=== PATIENT | female | born 1985 | race Caucasian/White ===

== ENCOUNTER 2016-10-23 11:19 | Emergency (ER) | payer OTHER ==
[~2016-10-23] VITALS: Ht 147.3 cm; Wt 59.0 kg
[~2016-10-23 11:19] MED LIST: ABILIFY10 MG PO; MELOXICAM7.5 M1 PO; OLANZAPINE5 MG PO; PAXIL10 MG PO; PAXIL20 M1 PO; PAXIL20 MG PO; PERCOCET 5-3251 EACH PO; XANAX0.5 MG PO; ZOFRAN4 M1 SL; ZYPREXA2.5 MG PO; ZYPREXA5 MG PO
--- NOTE | 2016-10-23 11:30 | ED PSYCHIATRIC COMPLAINT ---
History of Present Illness General Chief Complaint: Psychiatric Related Complaint Stated Complaint: ANXIETY, SI Vital Signs & Intake/Output Vital Signs & Intake/Output Vital Signs Date Time Temp Pulse Resp B/P Pulse O2 O2 Flow FiO2 Ox Delivery Rate 10/23 1126 98.2 81 20 142/88 96 Room Air Allergies Coded Allergies: Penicillins (Intermediate, RASH 01/04/16) Reconcile Medications Aripiprazole (Abilify) 10 MG TAB 1 TAB PO DAILY DEPRESSION Meloxicam 7.5 MG TABLET 1 TAB PO DAILY PRN pain/inflammation Oxycodone HCl/Acetaminophen (Percocet 5-325 MG Tablet) 1 EACH TABLET 1 TAB PO Q6H PRN PAIN PAROXETINE HCL (Paxil) 20 MG TAB 1 TAB PO DAILY DEPRESSION Paroxetine HCl (Paxil) 20 MG TABLET 1 TAB PO DAILY DEPRESSION Triage Note: RECEIVED 31 YO FEMALE C/O DESTRUCTIVE THOUGHTS AND ACTIONS. PT DENIES SI BUT IS CURRENTLY HURTING HERSELG, BANGLING HEAD AGAINST WALL AND PUNCHING SELF. PT HAS A HX OF ANXIETY AND PTSD. 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
--- NOTE | 2016-10-23 11:31 | ED PSYCHIATRIC COMPLAINT ---
History of Present Illness General Chief Complaint: Psychiatric Related Complaint Stated Complaint: ANXIETY, SI Source: patient, old records, EMS Exam Limitations: no limitations Vital Signs & Intake/Output Vital Signs & Intake/Output Vital Signs Date Time Temp Pulse Resp B/P Pulse O2 O2 Flow FiO2 Ox Delivery Rate 10/24 1028 99.4 92 18 98/60 10/24 0648 97.9 97 18 105/63 97 Room Air 10/23 2216 97.9 79 18 103/56 97 Room Air 10/23 1943 98.9 88 18 90/55 95 Room Air 10/23 1615 99.2 97 18 110/58 95 Room Air 10/23 1346 98.9 86 16 126/84 98 Room Air ED Intake and Output 10/24 0000 10/23 1200 Intake Total Output Total 300 Balance -300 Output, Urine 300 Patient 130 lb Weight Allergies Coded Allergies: Penicillins (Intermediate, RASH 01/04/16) Reconcile Medications Aripiprazole (Abilify) 10 MG TAB 1 TAB PO DAILY DEPRESSION Oxcarbazepine (Trileptal) (Unknown Strength) TABLET (Unknown Dose) DAILY TBI/ MENTAL HEALTH (Reported) PAROXETINE HCL (Paxil) 20 MG TAB 1 TAB PO DAILY DEPRESSION Trazodone HCl (Unknown Strength) TABLET (Unknown Dose) QPM SLEEP (Reported) Triage Note: RECEIVED 31 YO FEMALE C/O DESTRUCTIVE THOUGHTS AND ACTIONS. PT DENIES SI BUT IS CURRENTLY HURTING HERSELG, BANGLING HEAD AGAINST WALL AND PUNCHING SELF. PT HAS A HX OF ANXIETY AND PTSD. Triage Nurses Notes Reviewed? yes Onset: Gradual Duration: worse persistent since (1-2 weeks) Timing: recent history Severity: moderate Severity Numbers: 8 : No Patient currently breastfeeds: No HPI: Patient is a 31-year-old female presenting to the emergency department with chief complaint of suicidal ideation, increased anxiety. She reports that she's had intermittent thoughts of hurting herself over the past couple weeks. She recently relapsed with her alcohol use. She also chews on her . Over the past couple days she's been punching herself and hitting her head on the card because she feels like it's better off not being here. She also reports that she has history of cocaine abuse but reports no use recently. She drinks about 6 beers daily when she relapses. Denies any current nausea or vomiting fevers or chills chest pain or shortness of breath. The last time she hit herself in the face was 4 days ago. Denies any homicidal ideation. Denies abdominal pain. Denies any LOC with head injuries. (TOMAS DIXON) Past History Travel History Traveled to [place] past 21 day No Medical History Any Pertinent Medical History? 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 No (TOMAS DIXON) Review of Systems Review of Systems Constitutional: Reports: no symptoms. Comments Review of systems: See HPI, All other systems negative. Constitutional, no chills fever or weight loss HEENT: No visual changes no sore throat no congestion Cardiovascular: No chest pain ,palpitation Skin, no jaundice no rashes Respiratory: No dyspnea cough sputum or hemoptysis GI: No nausea no vomiting : No dysuria No hematuria Muscle skeletal: no back pain, no neck pain, Neurologic: No numbness Psych: Positive stress anxiety or depression,. Heme/endocrine: No bruising no bleeding no polyuria or polydipsia Immunology: No splenectomy or history of AIDS (TOMAS DIXON) Physical Exam Physical Exam General Appearance: well developed/nourished, no apparent distress, alert, awake , tearful Neurological/Psychiatric: oriented x 3 Comments: Well-developed well-nourished person in no acute distress HEENT: extraocular motion intact, no nystagmus. Pupils equally round and reactive to light and accommodation. Nose is atraumatic. External auditory canal and Tympanic membranes clear. Pharynx normal. No swelling or edema. Ecchymosis noted on the lateral aspect of the right orbit, nontender to palpation. Ecchymosis also noted at the superior aspect of the forehead which is nontender. Bruising appears to be several days old. Neck: Normal inspection Cardiovascular: Regular rate and rhythms no murmurs rubs or gallops, normal JVP Respiratory: Chest nontender. No respiratory distress.breath sounds clear to auscultation bilaterally Extremity: No edema Neuro: Alert oriented x3, motor sensory normal, cranial nerves II through XII grossly intact. Skin: Other than bruising, No appreciable rash on exposed skin, skin is warm and dry. Psych: Mood and affect is normal, memory and judgment is normal. SAD PERSONS SAD PERSONS Response Value Depression/Hopelessness? yes 2 Excessive Ethanol/Drug Use? yes 1 Rational Thinking Loss? yes 2 Social Support? has support 0 Stated Future Intent? yes 2 Total 7 SAD PERSONS Done? yes (TOMAS DIXON) Progress Differential Diagnosis: major depressive disorder, generalized anxiety disorder, contusion, concussion Plan of Care: Orders Procedure Date/time Status Regular Diet 10/24 B Active Regular Diet 10/23 L Complete Add-on Test (ER Only) 10/23 1251 Active ETHANOL 10/23 1139 Complete Hand-Off Endorsed To: SUKHDEV WESTBROOK MD Endorsed Time: 2300 Pending: consult Comments: Patient is a holdover for a bed search. Signed out to Dr. blanchard (TOMAS DIXON) Hand-Off Endorsed To: NISHANT WANG MD Endorsed Time: 0700 Pending: consult (CRISIS- BED SEARCH) (SUKHDEV WESTBROOK MD) Comments: Cleared by psychiatry for discharge (NISHANT WANG MD) Departure Departure Condition: Stable Referrals: PATIENT HAS NO PRIMARY CARE DR (PCP/Family) Departure Forms: Customer Survey General Discharge Information (TOMAS DIXON) Departure Clinical Impression Primary Impression: Anxiety Secondary Impressions: Alcohol dependence, Suicidal ideation PA/NUT CHOPPER Co-Sign Statement Statement: ED Attending supervision documentation- [X] I saw and evaluated the patient. I have also reviewed all the pertinent lab results and diagnostic results. I agree with the findings and the plan of care as documented in the PA's/NUT CHOPPER's documentation. [X] I have reviewed the ED Record and agree with the PA's/NUT CHOPPER's documentation. [] Additions or exceptions (if any) to the PAs/NUT CHOPPER's note and plan are summarized below: [] (SUKHDEV WESTBROOK MD) Departure Time of Disposition: 1245 Disposition: HOME OR SELF CARE Additional Instructions: Follow up with the recommendations of the casting house worker (NISHANT WANG MD) PATIENT HAS NO PRIMARY CARE DR (PCP/Family) Departure Forms: Customer Survey General Discharge Information (TOMAS DIXON) Departure Disposition: STILL A PATIENT Clinical Impression Primary Impression: Anxiety Secondary Impressions: Alcohol dependence, Suicidal ideation PA/NUT CHOPPER Co-Sign Statement Statement: ED Attending supervision documentation- [X] I saw and evaluated the patient. I have also reviewed all the pertinent lab results and diagnostic results. I agree with the findings and the plan of care as documented in the PA's/NUT CHOPPER's documentation. [X] I have reviewed the ED Record and agree with the PA's/NUT CHOPPER's documentation. [] Additions or exceptions (if any) to the PAs/NUT CHOPPER's note and plan are summarized below: [] (PIETRO IVY,SUKHDEV)
[2016-10-23] MEDS ORDERED: TRILEPTAL150 M1 (11:46)
[2016-10-23] MEDS ORDERED: TRAZODONE HCL100 M1 (11:47)
[2016-10-23 12:02] LABS: ABSOLUTE BASOPHIL COUNT 0.1 /CUMM (0.0-0.2); ABSOLUTE EOSINOPHIL COUNT 0.4 /CUMM (0.0-0.7); ABSOLUTE GRANULOCYTE CT 4.4 /CUMM (1.4-6.5); ABSOLUTE LYMPH COUNT 2.2 /CUMM (1.2-3.4); ABSOLUTE MONOCYTE COUNT 0.5 /CUMM (0.10-0.60); BASOPHIL % 0.9 % (0.0-2.0); EOSINOPHIL % 5.6 % (0-5); GRANULOCYTE % 57.5 % (42.2-75.2); HEMATOCRIT 45.5 % (37-47); MEAN CORPUSCULAR HGB 32.3 PG (27.0-31.0); MEAN CORPUSCULAR HGB CONC 34.1 G/DL (33.0-37.0); MEAN CORPUSCULAR VOLUME 94.7 FL (81.0-99.0); MEAN PLATELET VOLUME 8.6 FL (7.4-10.4); PLATELET COUNT 285 /CUMM (130-400); RED BLOOD CELL CT 4.81 /CUMM (4.20-5.40); WHITE BLOOD CELL COUNT 7.7 /CUMM (4.8-10.8)
--- NOTE | 2016-10-23 14:56 | ED PSYCH CRISIS CONSULTATION ---
See Addendum Crisis Consult Basic Assessment Date of Consult: 10/23/16 Responsible Person/Accompanied By: self Insurance Authorization: Insurance #1: Insurance name: MEDICARE A Phone number: Policy number: [id number] Group number: Authorization number: ED Provider: Patient's ED Provider: TOMAS DIXON Primary Care Physician: Patient's PCP: PATIENT HAS NO PRIMARY CARE DR PCP's Phone Number: Current Psychiatrist: Dr. Keenan [facility] Chief Complaint: Psychiatric Related Complaint Patient's Quote: "My voices from my thought bank told me to give up." Present Illness: Pt is a 31yo female who was brought to the ED by her ex- Jacob Cross due to concerns of suicidal thought and self harming behaviors. Pt has a hx of Bipolar Disorder with psychotic features since age 11 with multiple inpt psych admits as well as various out pt tx providers. Pt is currently in out pt tx at [facility], but stopped going in August and has decompensated since. Pt has been hearing her own voice from her "inner voice bank" telling her to give up and drink and do drugs and overdose. Pt has a prior hx of cutting and suicide attempts by OD and trying to jump off a bridge. Pt identifies that she has been sober for the past 3-4 years. Pt is upset with herself because she relapsed on alcohol about 2 weeks ago. She went to a bar and drank and then went home with a stranger and stayed with him for 2-3 days and had sex with him. Pt says she has not drank since then. Pt admits that she smokes marijuana surjit 2-3 days. She denies that she smokes around her 2yo child. Pt currently living with her Mom and the child is with the father Jacob. Pt sometimes stays with him as well. Pt explains that she is very angry at herself for relapsing and also for cheating on Jacob with the stranger, because they are trying to work things out and get back together. Pt admits that she has been having intermittent suicidal thoughts about overdosing, so Jacob has had to hold her meds and give them to her. Pt admits that she is not always consistent with her meds and sometimes forgets to take them (paxil, abilify, and trileptal). Pt also informed that she has been so overwhelmed with guilt that she has been punching herself in the face and banging her head on the wall. Pt currently has self inflicted bruises around her right eye. Pt presents as hyperverbal with pressured loud speech and disorganization. Pt is crying so much that at times it becomes difficult to understand what she says. Pt expresses feeling very depressed and has been isolating. Pt says she has been feeling very stressed due to having a conflicted relationship with her Mom and Jacob who are her primary supports but they both have threatened to kick her out of their homes due to her concerning behaviors. Crisis spoke to both ex- Jacob Cross and mother Jade Jones who both express great concern for pt and her safety due to her SI, SH, and impulsive behaviors and poor judgement. Additionally, Jacob reports that pt has been more distant from her 2yo sone which is very unlike her. Case reviewed with Dr. Ram of psychiatry and pt requires inpt psych tx. There are currently no beds available [facility], so a bed search will be done. Pt requesting to go inpt at [facility], but alleges that she has sex with someone while on their inpt psych unit. Mom requests that pt does not get transferred to [facility] psych for this reason. Patient's Address: [address] [place] [address] Other Phone Number: Who Do You Live With? Mother Family/Informants Interviewed: mom and ex- Allergies - Coded Allergies: Penicillins (Intermediate, RASH 01/04/16) Current Medications - Scheduled Medications Aripiprazole (Abilify) 10 MG TAB 1 TAB PO DAILY DEPRESSION #30 TAB Prescribed by JEFFRY MINAYA MD on 12/21/15 Last Taken: Unknown Dose at an unknown date and time Oxcarbazepine (Trileptal) (Unknown Strength) TABLET (Unknown Dose) DAILY TBI/ MENTAL HEALTH (Reported) Entered as Reported by DALTON DOWNS on 10/23/16 1146 PAROXETINE HCL (Paxil) 20 MG TAB 1 TAB PO DAILY DEPRESSION #30 TAB Prescribed by JEFFRY MINAYA MD on 12/21/15 Last Taken: Unknown Dose at an unknown date and time Trazodone HCl (Unknown Strength) TABLET (Unknown Dose) QPM SLEEP (Reported) Entered as Reported by DALTON DOWNS on 10/23/16 1147 Laboratory Results: Laboratory Tests 10/23/16 1152: Urine Opiates Screen < 100.00, Methadone Screen < 40, Barbiturate Screen < 60, Ur Phencyclidine Scrn < 6.00, Amphetamines Screen < 100, U Benzodiazepines Scrn < 85, Urine Cocaine Screen < 50, Urine Cannabis Screen 79.30 H, Urinalysis LIGHT H, Urine Color YEL, Urine Clarity HAZY H, Urine pH 6.0, Ur Specific [place] >= 1.030, Urine Protein 30 H, Urine Ketones TRACE H, Urine Nitrite POS H, Urine Bilirubin NEG, Urine Urobilinogen 0.2, Ur Leukocyte Esterase NEG, Ur Microscopic SEDIMENT EXAMINED, Urine RBC 1-3, Urine WBC 15-25 H, Ur Epithelial Cells MANY H, Urine Hemoglobin SMALL H, Urine Glucose NEG, Urine Test NEGATIVE 10/23/16 1139: Anion Gap 11, Estimated GFR > 60, BUN/Creatinine Ratio 16.7, Glucose 115 H, Calcium 9.8, Total Bilirubin 0.4, AST 17, ALT 20, Alkaline Phosphatase 83, Total Protein 7.8, Albumin 4.5, Globulin 3.3, Albumin/Globulin Ratio 1.4, TSH &T3 & Free T4 Intrp 1.660, CBC w Diff NO MAN DIFF REQ, RBC 4.81, MCV 94.7, MCH 32.3 H , RDW 13.0, MPV 8.6, Gran % 57.5, Lymphocytes % 29.0, Monocytes % 7.0, Eosinophils % 5.6 H, Basophils % 0.9, Absolute Granulocytes 4.4, Absolute Lymphocytes 2.2, Absolute Monocytes 0.5, Absolute Eosinophils 0.4, Absolute Basophils 0.1, PUBS MCHC 34.1, Serum Alcohol < 10.0 (NAMAN QUINTANA LCSW) Basic Assessment Insurance Authorization: Insurance #1: Insurance name: MEDICARE A Phone number: Policy number: [id number] Group number: Authorization number: (JADE SALVADOR LCSW) Addendum Addendum 10/24/2016 9:45am Pt. re-evaluated by Crisis this morning after having been held over in ED from last night. Pt was alert and oriented x three. Pt appeared to be anxious, but denied any suicidal thoughts. She said that she had punched herself in the eye and the head in the last few days because she was upset with herself for relapsing and cheating on her . Pt. said that her two year old child was not in the room when she hit herself. Pt said that she would like to be discharged so she can follow up with outpatient treatment at [facility] which includes calling her psychiatrist tomorrow and getting refills for her medications called in, going back to her outpatient group and requesting individual therapy. Pt said that she will also go back to AA meetings and get a sponsor. Pt's (Jacob) was called by Crisis. He agreed to pick pt up from ED and take her home and support her in following the above plan of care. Pt was also seen by Dr. Franklin. Pt. was offered inpatient admission, but declined. Pt. is able to safety plan and self-soothe and can call 911 if needed. Pts reported that there are no guns in the home. Pt is discharged to follow up with above plan of care. Pt. was given times and dates to AA meetings near her. 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 Past Surgical History Surgical History: none Psychosocial History Strengths/Capabilities: has good insight into her need for tx, supportive family Physical Limitations (Interventions): none reported Psychiatric Treatment History Psych Treatment Psychiatric Treatment Yes Inpatient Treatment Yes Outpatient Treatment Yes Location of Treatment [facility] Reason for Treatment Bipolar with Psychotic features Dates of Treatment multiple Response to Treatment variable Diagnosis by History: Bipolar with psychotic features Substance Use/Abuse History Drug Use/Abuse Substances Used/Abused Yes Substance Used/Abused Marijuana First Use age 8 Last Used this week How much used/taken "a few puffs" How often 2-3 times a week For how long on and off since age 8 Route of use smoke Substance Abuse Treatment Substance Abuse Treatment Past Substance Abuse TX Yes Inpatient Treatment Yes Outpatient Treatment Yes Location of Treatment [facility] Reason for Treatment poly-substance Dates of Treatment multiple Response to Treatment variable (NAMAN QUINTANA LCSW) Current Mental Status Mental Status Orientation: Person, Place, Situation Affect: Anxious, Broad, Depressed, Hopeless, Labile, Sad, Variable Speech: Hyper-verbal, Loud, Perseveration, Pressured Neuro-vegetative: Anhedonia, Appetite Decreased, Concentration Poor, Energy Decreased, Energy Increased, Helpless, Hyperactivity, Loss of Interest, Sexual Interest Increased, Sleep Disturbance Appearance Appearance- Dress/Hygiene: unkempt, disheveled, good eye contact, crying, shaking Behaviors Thought Process: Disorganized, Flight of Ideas, Irrational, Tangential Thought Content: Auditory Hallucinations Memory: WNL Insight: Poor SI/HI Risk Assessment Past Suicidal Ideation/Attempts Yes Current Suicidal Ideation/Att Yes Past Homicidal Ideation/Att: No Current Homicidal Ideation/Attempts No Degree of Intent: Plan Danger To: Self Gravely Disabled: Lack of Insight, Poor Impulse Control, Poor Judgment Risk Factors: access to lethal means, high anxiety/distress, history of suicide atmpts, SA/MH hospitalized, substance abuse, poor impulse control, limited support Lethality Ratin PTSD Checklist PTSD Done? patient declined ED Management Sitter: Yes Restraints: No (NAMAN QUINTANA LCSW) DSM5/PS Stressors/Medical Prob Diagnosis' (DSM 5, Stressors, Medical): F31.5 Bipolar depressed with psychotic features, cannabis use d/o mod f12.20 Current GAF: 25 (NAMAN QUINTANA LCSW) Departure Disposition Psych Medical Clearance Date: 10/23/16 Medically Cleared at: 1400 Time Started: 1400 Time Ended: 1500 Psychiatrist Consulted: Dr. Ram Date Disposition Established: 10/23/16 Time Disposition Established: 1500 Plan for Disposition - Modality: Inpatient Psychiatry Facility: bed search Rationale for Disposition: safety and stabilization of sx Referrals PATIENT HAS NO PRIMARY CARE DR (PCP/Family) (NAMAN QUINTANA LCSW) Disposition Psych Medical Clearance Date: 10/24/16 Medically Cleared at: 0900 Time Started: 0900 Time Ended: 0945 Psychiatrist Consulted: Noemi Capps Disposition Established: 10/24/16 Time Disposition Established: 944 Plan for Disposition - Modality: Outpatient Facility: [facility] Contact: n/a Telephone: n/a Rationale for Disposition: Pt. denied current suicidal thoughts and is able to safety plan and self-soothe. She is willing to re-engage in OP tx at [facility] and said that she will be going to go back to AA meetings. Pt is not at current risk of harm to self/ others. Pt's was here in the ED and agreed to take her home and support her in the above after-care plan. Dr. Franklin is agreeable to POC also. Additional Instructions: n/a (MODESTO SWANSON,JADE)
[2016-10-24 13:18] VITALS: BP 119/80
--- NOTE | 2016-10-24 19:47 | ED PSYCHIATRIST/APRN CONSULT ---
Psychiatrist/GAMBLING SUPERVISOR ED Consult Assessment and Plan: 31 y.o woman w/ hx psychiatric tx including inpatient admissions, brought in by family for erratic and self injurious behavior. She was observed last night to be loud, anxious/agitated, needed significant de-escalation. Family had stated that she had punched herself after she had relapsed on alcohol and cheated on her , that she had forgotten where she was/who she was with while intoxicated, and she returned home erratic, punching herself in the face. Discussion was made for inpatient admission due to her erratic behavior in the ER and her hx of high risk behavior. This mornign she was calmer, laughing with her family who was present, and better related. She stated that she had no intensions of killing or harming herself - that she had punched self on Tuesday/ tuesday this week and had no other self harm behaviors since, b/c she was feeling guilty about her cheating on and her alcohol relapse. Stated that she did not do this with her child present and that her child was being cared for by her mother overall. Collateral from crisis indicated that her mother was worried about her mental health, that she had no been doing well, but had not seen the patient in several weeks (patient lives w/ her but sometimes goes to mother). /boyfriend was present at bedside, was frustrated with her behavior but did not have immediate safety concerns - patient stated that she was reading a book which was helpful to her, that she needed to get grounded and to manage her anxiety and anger better; and that she did not want to be away from her family in order to do so. She conitnued to dent any thoughts of suicide or wanting to harm someone else, stated that yesterday and earlier in the week she also did not have any suicidal thoughts, that she was trying to punish herself b/c of her relapse by punching self. She was tense and anxious, but able to be distracted easily. She did not present with any significant sx of psychosis; though at times became very anxious and pressured. She did not appear grossly manic, and no delusions were elicite.d We discussed safety planning - no guns at home; knives and bottles are locked up ; to call 911 if she felt unsafe and to have her call 911 if she engages in erratic or self harm behavior. Also discusssed that his adult daughter would continue giving her medications, trileptal, abilify and paxil. she stated that she was prescribed trazodone but it was not helpful. She declined voluntary admission despite education; her mental status appeared to have improved compared to yesterday and her acute crisis apepared to have been resolving. She had multiple friends and family members around her who she stated she was looking forward to seeing later in the day time; and she asked to be given info on AA meeting she could attend later today. She has siginificant chronic risks associated w/ her mental illness, self harm behavior and likely personality traits, in addition to recent relapse. Risks are mitigated w/ ongoing medication, groups, outpatient therapy, AA, and safety planning. she did not meet criteria for PEC and she declined voluntary admission ; also she has outpatient providers where she has been following up. Stable for d/c.
== END 2016-10-24 13:21 ==
LOC: ERH 11:19
PROVIDERS: Physician Assistant
DX: F41.9 Anxiety disorder, unspecified (principal); F10.20 Alcohol dependence, uncomplicated; R45.851 Suicidal ideations
CPT/HCPCS: 80307; 81001; 81025; G0463; G0480

== ENCOUNTER 2016-11-13 19:29 | Emergency (ER) | payer OTHER ==
[~2016-11-13] VITALS: Ht 147.3 cm; Wt 56.7 kg
[~2016-11-13 19:29] MED LIST changes: +TRAZODONE HCL100 M1; +TRILEPTAL150 M1
[2016-11-13 19:42] VITALS: BP 91/63
--- NOTE | 2016-11-13 20:09 | ED UPPER/LOWER EXTREMITY COMPL ---
History of Present Illness General Chief Complaint: Lower Extremity Injury Stated Complaint: FALL/LEFT KNEE PAIN Source: patient Exam Limitations: no limitations Vital Signs & Intake/Output Vital Signs & Intake/Output ED Intake and Output 11/14 0000 11/13 1200 Intake Total 0 Output Total Balance 0 Intake, Oral 0 Patient 125 lb Weight Allergies Coded Allergies: Penicillins (Intermediate, RASH 01/04/16) Reconcile Medications Aripiprazole (Abilify) 10 MG TAB 1 TAB PO DAILY DEPRESSION Oxcarbazepine (Trileptal) (Unknown Strength) TABLET (Unknown Dose) DAILY TBI/ MENTAL HEALTH (Reported) Oxycodone HCl/Acetaminophen (Percocet 5-325 MG Tablet) 5 MG-325 MG TABLET 1-2 TAB PO Q8P PRN PAIN PAROXETINE HCL (Paxil) 20 MG TAB 1 TAB PO DAILY DEPRESSION Trazodone HCl (Unknown Strength) TABLET (Unknown Dose) QPM SLEEP (Reported) Triage Note: PT TO TRIAGE WITH C/O L KNEE PAIN AND L KNEE SKIN ABRASION S/P TRIPPED AND FELL 30MIN [employer]. PT DENIES HEADSTRIKE. SWELLING TO L KNEE NOTED, BLEEDING CONTROLLED. ICE PACK PROVIDED. PT REFUSED PAIN MEDS IN TRIAGE. PT UNSURE OF LAST TETANUS VACC. Triage Nurses Notes Reviewed? yes Onset: Abrupt Duration: hour(s):, constant, continues in ED Timing: recent history Severity: moderate, severe Pain/Injury Location: Left: Knee. Method of Injury: fall No Modifying Factors: none : No Patient currently breastfeeds: No HPI: 31-year-old female comes into emergency room for further evaluation of left knee pain. Patient reports that she fell outside. Patient tripped and came down her left knee. Straight to her left knee. Denies any trauma or injury any rales. Sharp pain. Moderate to severe. He continues. Nonradiating. (KELSEY DAVIS) Past History Travel History Traveled to [place] past 21 day No Medical History Any Pertinent Medical History? 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 No (KELSEY DAVIS) Review of Systems Review of Systems Constitutional: Reports: no symptoms. EENTM: Reports: no symptoms. Respiratory: Reports: no symptoms. Cardiovascular: Reports: no symptoms. Gastrointestinal/Abdominal: Reports: no symptoms. Genitourinary: Reports: no symptoms. Musculoskeletal: Reports: see HPI. Skin: Reports: see HPI. Neurological/Psychological: Reports: no symptoms. Hematologic/Endocrine: Reports: no symptoms. Immunological: Reports: no symptoms. All Other Systems: Reviewed and Negative (KELSEY DAVIS) Physical Exam Physical Exam General Appearance: well developed/nourished, mild distress Head: atraumatic Eyes: Bilateral: normal appearance. Ears, Nose, Throat: normal ENT inspection, hearing grossly normal Neck: normal inspection Cardiovascular/Respiratory: no respiratory distress Back: normal inspection Knee Left: Skin abrasion left knee, full range of motion, MCL/else ill contacts, negative anterior posterior drawer Neurologic/Tendon: normal sensation, normal motor functions, normal tendon functions, responds to pain, no evidence tendon injury, no pulse deficit Skin: intact, normal color, warm/dry Lymphatic: no anterior cervical yessica (KELSEY DAVIS) Progress Differential Diagnosis: contusion, dislocation, fracture, septic arthritis, sprain, tendon injury Plan of Care: Current Medications Sig/Herve Start time Last Medication Dose Stop Time Status Admin Oxycodone/ 1 TAB ONCE ONE 11/13 2100 UNVr Acetaminophen 11/13 2100 (Percocet) Tetanus/Diphtheria 0.5 ML ONCE ONE 11/13 2100 UNVr Toxoids Adsorbed 11/13 2100 (Decavac) Diagnostic Imaging: Viewed by Me: Radiology Read. Discussed w/RAD: Radiology Read. Radiology Impression: SERVICE DATE: 11/13/16 EXAM TYPE: RAD - XRY-KNEE, LEFT EXAMINATION: XR KNEE, LEFT CLINICAL INFORMATION: Left knee injury. Left knee pain. COMPARISON: None. TECHNIQUE: AP, lateral and bilateral oblique views of the left knee. of the left knee. FINDINGS: Bones and soft tissues appear unremarkable. No acute left knee fracture or joint effusion. Alignment is anatomic. Joint spaces are well maintained. No abnormal soft tissue calcification. IMPRESSION: No acute fracture or dislocation of the left knee. No significant suprapatellar knee joint effusion. DICTATED BY: IVET GOMEZ MD DATE/TIME DICTATED:11/13/162030 FLEET COORDINATOR:ÁNGEL DATE/TIME TRANSCRIBED:11/13/162030 (KELSEY DAVIS) Departure Departure Disposition: HOME OR SELF CARE Condition: Stable Clinical Impression Primary Impression: Contusion of left knee Secondary Impressions: Skin abrasion Referrals: VINICIO RUELAS MD PATIENT HAS NO PRIMARY CARE DR (PCP/Family) Additional Instructions: Take Percocet for pain. Rest. Ice. Weightbearing as tolerated. Return if any other concerns worsening symptoms. If not better in 3-5 days follow-up with orthopedic doctor. Follow-up with your primary care physician this week. Return to the emergency room at any time sooner if you have worsening of your symptoms or any other concerns. Please note that there might be incidental findings in your evaluation that are unrelated to the current emergency department visit. Please notify your primary care doctor about this emergency department visit in order to obtain and review all of the testing performed so that these incidental findings can be monitored as needed. If you were prescribed a narcotic use caution as this medication is highly addictive and will make you drowsy use for breakthrough pain only. No driving, drinking alcohol or operating machinary when taking. If you had an x-ray performed, please understand that some fractures may not be seen on the initial set of x-rays. If your symptoms persist you might need a repeat set of x-rays to check for such a fracture. If you had a laceration evaluated, please understand that foreign bodies such as glass or wood may not be visible to the naked eye or on plain x-rays. If the wound becomes red, swollen, increasingly more painful or if there is any drainage from the wound, please have it reevaluated by a physician for the possibility of a retained foreign body. Departure Forms: Customer Survey General Discharge Information Prescriptions: Current Visit Scripts Oxycodone HCl/Acetaminophen (Percocet 5-325 MG Tablet) 1-2 TAB PO Q8P PRN PAIN #10 TAB (KELSEY DAVIS) PA/ASSOCIATE FIELD SERVICE ENGINEER Co-Sign Statement Statement: ED Attending supervision documentation- [] I saw and evaluated the patient. I have also reviewed all the pertinent lab results and diagnostic results. I agree with the findings and the plan of care as documented in the PA's/ASSOCIATE FIELD SERVICE ENGINEER's documentation. [X] I have reviewed the ED Record and agree with the PA's/ASSOCIATE FIELD SERVICE ENGINEER's documentation. [] Additions or exceptions (if any) to the PAs/ASSOCIATE FIELD SERVICE ENGINEER's note and plan are summarized below: [] (PIETRO IVY,SUKHDEV) Procedures Splinting Location: left knee Manual Alignment Performed: No Pre-Made Type: Lopez wrap Splint Applied By: splint applied by me Pre-Proc Neuro Vasc Exam: normal Post-Proc Neuro Vasc Exam: normal (KELSEY DAVIS)
--- NOTE | 2016-11-13 20:35 | RADIOLOGY REPORT ---
EXAMINATION: XR KNEE, LEFT CLINICAL INFORMATION: Left knee injury. Left knee pain. COMPARISON: None. TECHNIQUE: AP, lateral and bilateral oblique views of the left knee. of the left knee. FINDINGS: Bones and soft tissues appear unremarkable. No acute left knee fracture or joint effusion. Alignment is anatomic. Joint spaces are well maintained. No abnormal soft tissue calcification. IMPRESSION: No acute fracture or dislocation of the left knee. No significant suprapatellar knee joint effusion.
[2016-11-13] MEDS ORDERED: PERCOCET 5-3251 EACH PO (20:50)
== END 2016-11-13 21:04 ==
LOC: ERH 19:29
DX: S80.02XA Contusion of left knee, initial encounter (principal); S80.212A Abrasion, left knee, initial encounter; W19.XXXA Unspecified fall, initial encounter
CPT/HCPCS: 73560-LT; 90471; 90714